=== PATIENT | female | born 1955 | race Caucasian/White ===

== ENCOUNTER 2022-01-05 16:37 | Emergency (ER) | payer MEDICARE ==
[2022-01-05 18:51] LABS: HEMOGLOBIN 13.4 gm/dl (12.3-15.3); RED BLOOD COUNT 4.56 M/UL (4.00-5.10); WHITE BLOOD COUNT 11.8 K/UL (4.5-11.0)
[2022-01-05 19:59] LABS: BUN/CREATININE RATIO 14 (0-10)
== END 2022-01-05 23:00 | disposition home or self-care (01) ==
LOC: ER1 16:37
PROVIDERS: Emergency Medicine
DX: S80.01XA Contusion of right knee, initial encounter (principal); Z88.8 Allergy status to other drugs, medicaments and biological substances; W19.XXXA Unspecified fall, initial encounter; K21.9 Gastro-esophageal reflux disease without esophagitis
CPT/HCPCS: 71045; 73564; 80053; 82550; 82553; 83690; 84484; 85025; 93005; 99284